=== PATIENT | female | born 1950 | race American Indian/Alaskan Native ===

== ENCOUNTER 2016-05-03 12:02 | Outpatient (CLI) | payer MEDICARE ==
--- NOTE | 2016-05-03 12:56 | XRay Report ---
Right knee: Periarticular spurs involve both medial and lateral joint compartments. Large articular spurs are also noted at the superior margin of the patella and femur. The joint spaces appear preserved and the articular margins are smooth. The bones are well-mineralized. The joint is well aligned. There is no swelling nor effusion. Impressions: Degenerative changes as detailed above.
== END 2016-05-03 12:03 | disposition home or self-care (01) ==
LOC: SPVIMAG 12:02
PROVIDERS: ATTEND Nurse Practitioner
DX: M25.561 Pain in right knee (principal)

== ENCOUNTER 2020-07-26 09:20 | Observation (INO) | payer MEDICARE ==
[2020-07-26] MEDS ORDERED: ASPIRIN 325 MG TAB PO ONE (10:31)
--- NOTE | 2020-07-26 11:30 | XRay Report ---
XR chest routine 2V INDICATION / CLINICAL INFORMATION: c/o dizziness and HTN. COMPARISON: None available. FINDINGS: SUPPORT DEVICES: None. HEART /PULMONARY VASCULATURE: No significant abnormality. LUNGS / PLEURA: No significant pulmonary or pleural abnormality. No pneumothorax. ADDITIONAL FINDINGS: No significant additional findings. IMPRESSION: 1. No acute findings. Signer Name: Jesus Fraire MD Signed: 07/26/2020 11:26 AM Workstation Name: [id number]
[2020-07-26 11:33] LABS: Basophils % (Auto) 0.3 % (0.0-1.8); Eosinophils % (Auto) 0.2 % (0.0-4.3); Hematocrit 40.6 % (30.3-42.9); Hemoglobin 13.7 gm/dl (10.1-14.3); Lymphocytes # (Auto) 1.2 K/mm3 (1.2-5.4); Mean Corpuscular HGB Conc 34 % (30-34); Mean Corpuscular Volume 88 fl (79-97); Monocytes # (Auto) 0.2 K/mm3 (0.0-0.8); Monocytes % (Auto) 1.9 % (0.0-7.3); Platelet Count 338 K/mm3 (140-440); Red Blood Count 4.64 M/mm3 (3.65-5.03); Red Cell Distribution Width 14.3 % (13.2-15.2)
--- NOTE | 2020-07-26 11:41 | Event Note ---
ED Screening Note ED Screening Note: lightheaded that began a few days ago and worsened last night states she felt off balance and dizziness states she is having memory issues for months she denies any CP or SOB or vomiting or fever or cough PMHx HTN allergy morphine This initial assessment/diagnostic orders/clinical plan/treatment(s) is/are subject to change based on patients health status, clinical progression and re- assessment by fellow clinical providers in the ED. Further treatment and workup at subsequent clinical providers discretion. Patient/guardian urged not to elope from the ED as their condition may be serious if not clinically assessed and managed. Initial orders include: labs, UA, EKG, CT head
[2020-07-26 11:56] LABS: Alanine Aminotransferase 15 units/L (7-56); Albumin 4.6 g/dL (3.9-5); Blood Urea Nitrogen 13 mg/dL (7-17); Hemolysis Index 4
[2020-07-26 12:06] LABS: BUN/Creatinine Ratio 19
--- NOTE | 2020-07-26 12:28 | Cat Scan Report ---
NONENHANCED CT SCAN OF THE HEAD: INDICATION / CLINICAL INFORMATION: 70 years Female; lightheaded, dizziness, HTN. TECHNIQUE: Routine CT head without contrast. All CT scans at this location are performed using CT dos e reduction for ALARA by means of automated exposure control. COMPARISON: None. FINDINGS: BRAIN / INTRACRANIAL CONTENTS: No acute hemorrhage, mass effect, midline shift, hydrocephalus, or acu te, large territorial infarct. No chronic infarct or focal atrophy. Mild cortical involution. No sign ificant white matter abnormality. CRANIOCERVICAL JUNCTION: No significant abnormality. ORBITS: No significant abnormality of visualized orbits. SINUSES / MASTOIDS: No significant abnormality of the visualized paranasal sinuses or mastoid air lauren ls. ADDITIONAL FINDINGS: Focal expansile lucent lesion in the diploic space of the left frontal bone; int act; involution is seen minimal adjacent intracranial soft tissue swelling; soft tissue swelling is b othersome; no previous CT images are available; this has to be followed; MRI scan with gadolinium wou ld be helpful IMPRESSION: No acute focal parenchymal lesion in the brain Focal expansile left frontal bone diploic space lesion with diminished into the inner table and adjac ent intracranial soft tissue swelling; please obtain MR scan of the brain with gadolinium Signer Name: Pricilla Harris MD Signed: 07/26/2020 12:23 PM Workstation Name: [email or web address]
--- NOTE | 2020-07-26 13:39 | Emergency Department Report ---
ED Dizziness HPI - General Chief Complaint: Dizziness Stated Complaint: HBP, DIZZINESS Time Seen by Provider: 07/26/20 11:39 Source: patient, EMS Mode of arrival: Wheelchair Limitations: No Limitations - History of Present Illness Initial Comments: 70-year-old female, history of hypertension, dementia, presents to ED with elevated blood pressure. Patient is currently living in a personal detention. I spoke with Maru Rojas ([phone]), personal lines sales executive. She states patient has been complaining of dizziness for about 4 days. Stating that he feels like she is swimming. She reports that patient's systolic BP was in the 200s yesterday and today, so EMS was called. She reports that patient did take her blood pressure medications prior to leaving the facility and coming to the ER. She states that patient takes benazepril 1 tab daily, and HCTZ 1 tab every other day. Patient currently states that she cannot remember why she is in the emergency room. She denies any headache, nausea or vomiting, abdominal pain, chest pain, shortness of breath. When asked about dizziness, patient states she had some dizziness earlier, however it has currently gone away. Patient is poor historian MD Complaint: dizziness -: days(s) (4) Improves With: nothing Worsens With: nothing Associated Symptoms: denies: chest pain, cough, fever/chills, shortness of breath - Related Data Home Medications Medication Instructions Recorded Confirmed Last Taken Benazepril HCl [Lotensin] 20 mg PO QDAY 07/27/20 07/27/20 Unknown Ergocalciferol (Vitamin D2) 1,250 mcg PO QDAY 07/27/20 07/27/20 Unknown [Drisdol] Ezetimibe [Zetia] 10 mg PO QDAY 07/27/20 07/27/20 Unknown Potassium Chloride [K-Dur] 10 meq PO Q48H 07/27/20 07/27/20 Unknown hydroCHLOROthiazide 25 mg PO Q48H 07/27/20 07/27/20 Unknown [Hydrochlorothiazide] Allergies Allergy/AdvReac Type Severity Reaction Status Date / Time morphine Allergy Rash Verified 07/27/20 00:49 ED Review of Systems ROS: Stated complaint: HBP, DIZZINESS Other details as noted in HPI Comment: All other systems reviewed and negative Constitutional: denies: fever Respiratory: denies: shortness of breath Cardiovascular: denies: chest pain Gastrointestinal: denies: abdominal pain, vomiting, diarrhea Neurological: vertigo. denies: headache ED Past Medical Hx - Past Medical History Previous Medical History?: Yes Hx Hypertension: Yes - Surgical History Past Surgical History?: Yes Additional Surgical History: - Social History Smoking Status: Never Smoker Substance Use Type: Alcohol - Medications Home Medications: Home Medications Medication Instructions Recorded Confirmed Last Taken Type Benazepril HCl [Lotensin] 20 mg PO QDAY 07/27/20 07/27/20 Unknown History Ergocalciferol (Vitamin D2) 1,250 mcg PO QDAY 07/27/20 07/27/20 Unknown History [Drisdol] Ezetimibe [Zetia] 10 mg PO QDAY 07/27/20 07/27/20 Unknown History Potassium Chloride [K-Dur] 10 meq PO Q48H 07/27/20 07/27/20 Unknown History hydroCHLOROthiazide 25 mg PO Q48H 07/27/20 07/27/20 Unknown History [Hydrochlorothiazide] ED Physical Exam - General Limitations: No Limitations General appearance: alert, in no apparent distress - Head Head exam: Present: atraumatic, normocephalic - Eye Eye exam: Present: normal appearance, PERRL, EOMI - ENT ENT exam: Present: mucous membranes moist - Neck Neck exam: Present: normal inspection - Respiratory Respiratory exam: Present: normal lung sounds bilaterally. Absent: respiratory distress - Cardiovascular Cardiovascular Exam: Present: regular rate, normal rhythm - GI/Abdominal GI/Abdominal exam: Present: soft. Absent: distended, tenderness - Extremities Exam Extremities exam: Present: normal inspection - Neurological Exam Neurological exam: Present: alert, oriented X3, CN II-XII intact, abnormal gait, other ([id number] normal bilaterally). Absent: motor sensory deficit ED Course Vital Signs 07/26/20 07/26/20 07/26/20 10:21 13:12 13:31 Temperature 98.4 F Pulse Rate 60 70 Respiratory 20 8 L 14 Rate Blood Pressure 183/91 165/86 Blood Pressure [Left] O2 Sat by Pulse 98 100 99 Oximetry 07/26/20 07/26/20 07/26/20 13:45 14:11 14:31 Temperature 98.4 F Pulse Rate 74 79 Respiratory 14 13 15 Rate Blood Pressure 173/93 153/81 Blood Pressure 165/86 [Left] O2 Sat by Pulse 100 99 99 Oximetry 07/26/20 07/26/20 07/26/20 15:01 15:31 15:51 Temperature Pulse Rate 71 83 87 Respiratory 14 18 16 Rate Blood Pressure 165/86 142/73 142/73 Blood Pressure [Left] O2 Sat by Pulse 99 100 100 Oximetry 07/26/20 07/26/20 07/26/20 16:01 16:10 16:25 Temperature Pulse Rate 82 79 96 H Respiratory 14 15 Rate Blood Pressure 135/74 165/86 135/74 Blood Pressure [Left] O2 Sat by Pulse 99 99 Oximetry 07/26/20 07/26/20 07/26/20 16:31 16:41 16:51 Temperature Pulse Rate 78 87 86 Respiratory 16 18 12 Rate Blood Pressure 149/84 149/84 149/84 Blood Pressure [Left] O2 Sat by Pulse 100 98 99 Oximetry 07/26/20 07/26/20 07/26/20 17:01 17:11 17:21 Temperature Pulse Rate 84 87 Respiratory 22 21 16 Rate Blood Pressure 135/74 135/74 135/74 Blood Pressure [Left] O2 Sat by Pulse 99 98 99 Oximetry ED Medical Decision Making - Lab Data Result diagrams: 07/26/20 11:10 07/26/20 11:10 - Radiology Data Radiology results: report reviewed, image reviewed - Medical Decision Making 70-year-old female presents to ED with 4-day history of dizziness, 2-day history of elevated blood pressure despite taking her blood pressure medications. EKG and labs are normal. CT head is unremarkable. With ambulation, patient has unsteady gait. I am concerned about possible posterior circulation stroke. Patient will be admitted by hospitalist, Dr. Gardner, for further management and MRI. - Differential Diagnosis Uncontrolled hypertension, CVA, benign positional vertigo Critical care attestation.: If time is entered above; I have spent that time in minutes in the direct care of this critically ill patient, excluding procedure time. ED Disposition Clinical Impression: Dizziness, Uncontrolled hypertension Disposition: OP ADMIT IP TO THIS HOSP Is pt being admited?: Yes Condition: Stable Time of Disposition: 15:07
[2020-07-26 14:26] LABS: Bilirubin,Urine NEG (Negative); Blood,Urine NEG (Negative); Color,Urine Yellow (Yellow); Mucus,Urine FEW /HPF; Protein,Urine <15 mg/dL mg/dL (Negative); Urobilinogen,Urine < 2.0 mg/dL (<2.0)
[2020-07-26 14:51] LABS: RBC,Urine < 1.0 /HPF (0.0-6.0)
--- NOTE | 2020-07-27 00:17 | History and Physical Report ---
History of Present Illness Date of examination: 07/26/20 Date of admission: 07/26/20 16:40 Chief complaint: Dizziness and unsteady gait for 4 days. History of present illness: 70-year-old female with a past medical history of hypertension currently living in a personal [facility] comes in for dizziness and unsteady gait of 4 days duration. Patient does not have any weakness but very unsteady while walking. Also persistent dizziness. Patient blood pressure is also high and was sent by the personal [facility] by EMS. No shortness of breath. Patient is on benaz epril. No strokes in the past. Code stroke was called in the emergency room. Patient continues to have dizziness. No exacerbating or relieving factors. - Past Medical History Previous Medical History?: Yes Hx Hypertension: Yes - Surgical History Past Surgical History?: Yes Additional Surgical History: - Social History Smoking Status: Never Smoker Substance Use Type: Alcohol Family history Htn Review of Systems ROS: Stated complaint: HBP, DIZZINESS Other details as noted in HPI Comment: All other systems reviewed and negative Constitutional: denies: fever Respiratory: denies: shortness of breath Cardiovascular: denies: chest pain Gastrointestinal: denies: abdominal pain, vomiting, diarrhea Neurological: vertigo. denies: headache Medications and Allergies Allergies Allergy/AdvReac Type Severity Reaction Status Date / Time morphine Allergy Rash Verified 07/26/20 17:37 Exam - Constitutional Vitals: Temp Pulse Resp BP Pulse Ox 98.1 F 74 18 147/64 98 07/26/20 23:12 07/26/20 23:12 07/26/20 23:12 07/26/20 23:12 07/26/20 23:12 General appearance: Present: no acute distress, well-nourished - EENT Eyes: Present: PERRL ENT: hearing intact, clear oral mucosa - Neck Neck: Present: supple, normal ROM - Respiratory Respiratory effort: normal Respiratory: bilateral: CTA - Cardiovascular Heart rate: 78 Rhythm: regular Heart Sounds: Present: S1 & S2. Absent: rub, click - Extremities Extremities: pulses symmetrical, No edema Peripheral Pulses: within normal limits - Abdominal General gastrointestinal: Present: soft, non-tender, non-distended, normal bowel sounds Female genitourinary: Present: normal - Integumentary Integumentary: Present: clear, warm, dry - Musculoskeletal Musculoskeletal: gait normal, strength equal bilaterally - Psychiatric Psychiatric: appropriate mood/affect, intact judgment & insight - Neurologic Neurologic: CNII-XII intact, focal deficits (No focal deficits), moves all ex tremities, other (Unsteady gait) HEART Score - HEART Score Troponin: Troponin T < 0.010 ng/mL (0.00-0.029) 07/26/20 14:19 Results - Labs CBC & Chem 7: 07/26/20 11:10 07/26/20 11:10 Labs: Laboratory Last Values WBC 10.8 K/mm3 (4.5-11.0) 07/26/20 11:10 RBC 4.64 M/mm3 (3.65-5.03) 07/26/20 11:10 Hgb 13.7 gm/dl (10.1-14.3) 07/26/20 11:10 Hct 40.6 % (30.3-42.9) 07/26/20 11:10 MCV 88 fl (79-97) 07/26/20 11:10 MCH 30 pg (28-32) 07/26/20 11:10 MCHC 34 % (30-34) 07/26/20 11:10 RDW 14.3 % (13.2-15.2) 07/26/20 11:10 Plt Count 338 K/mm3 (140-440) 07/26/20 11:10 Lymph % (Auto) 11.0 % (13.4-35.0) L 07/26/20 11:10 Dickens % (Auto) 1.9 % (0.0-7.3) 07/26/20 11:10 Eos % (Auto) 0.2 % (0.0-4.3) 07/26/20 11:10 Baso % (Auto) 0.3 % (0.0-1.8) 07/26/20 11:10 Lymph # (Auto) 1.2 K/mm3 (1.2-5.4) 07/26/20 11:10 Dickens # (Auto) 0.2 K/mm3 (0.0-0.8) 07/26/20 11:10 Eos # (Auto) 0.0 K/mm3 (0.0-0.4) 07/26/20 11:10 Baso # (Auto) 0.0 K/mm3 (0.0-0.1) 07/26/20 11:10 Seg Neutrophils % 86.6 % (40.0-70.0) H 07/26/20 11:10 Seg Neutrophils # 9.4 K/mm3 (1.8-7.7) H 07/26/20 11:10 Sodium 140 mmol/L (137-145) 07/26/20 11:10 Potassium 3.9 mmol/L (3.6-5.0) 07/26/20 11:10 Chloride 100.7 mmol/L (98-107) 07/26/20 11:10 Carbon Dioxide 28 mmol/L (22-30) 07/26/20 11:10 Anion Gap 15 mmol/L 07/26/20 11:10 BUN 13 mg/dL (7-17) 07/26/20 11:10 Creatinine 0.7 mg/dL (0.6-1.2) 07/26/20 11:10 Estimated GFR > 60 ml/min 07/26/20 11:10 BUN/Creatinine Ratio 19 % 07/26/20 11:10 Glucose 115 mg/dL (65-100) H 07/26/20 11:10 Calcium 10.0 mg/dL (8.4-10.2) 07/26/20 11:10 Magnesium 2.50 mg/dL (1.7-2.3) H 07/26/20 11:10 Total Bilirubin 0.30 mg/dL (0.1-1.2) 07/26/20 11:10 AST 13 units/L (5-40) 07/26/20 11:10 ALT 15 units/L (7-56) 07/26/20 11:10 Alkaline Phosphatase 97 units/L (35-129) 07/26/20 11:10 Total Creatine Kinase 107 units/L (30-135) 07/26/20 11:10 Troponin T < 0.010 ng/mL (0.00-0.029) 07/26/20 14:19 Total Protein 7.6 g/dL (6.3-8.2) 07/26/20 11:10 Albumin 4.6 g/dL (3.9-5) 07/26/20 11:10 Albumin/Globulin Ratio 1.5 % 07/26/20 11:10 Urine Color Yellow (Yellow) 07/26/20 Unknown Urine Turbidity Clear (Clear) 07/26/20 Unknown Urine pH 7.0 (5.0-7.0) 07/26/20 Unknown Ur Specific [place] 1.013 (1.003-1.030) 07/26/20 Unknown Urine Protein <15 mg/dl mg/dL (Negative) 07/26/20 Unknown Urine Glucose (UA) Neg mg/dL (Negative) 07/26/20 Unknown Urine Ketones Tr mg/dL (Negative) 07/26/20 Unknown Urine Blood Neg (Negative) 07/26/20 Unknown Urine Nitrite Neg (Negative) 07/26/20 Unknown Urine Bilirubin Neg (Negative) 07/26/20 Unknown Urine Urobilinogen < 2.0 mg/dL (<2.0) 07/26/20 Unknown Ur Leukocyte Esterase Sm (Negative) 07/26/20 Unknown Urine WBC (Auto) 1.0 /HPF (0.0-6.0) 07/26/20 Unknown Urine RBC (Auto) < 1.0 /HPF (0.0-6.0) 07/26/20 Unknown Urine Mucus Few /HPF 07/26/20 Unknown - Imaging and Cardiology EKG: report reviewed (Sinus rhythm no acute ST-T wave changes) Chest x-ray: report reviewed Imaging and Cardiology: Head CT No acute focal parenchymal lesions in the brain Chest x-ray No acute findings Rae/IV: Voiding Method Toilet Assessment and Plan Advance Directives: Yes (Full code) VTE prophylaxis?: Chemical Plan of care discussed with patient/family: Yes - Patient Problems (1) Hypertensive emergency Current Visit: Yes Status: Acute Plan to address problem: Blood pressure medications initiated We will control the blood pressure IV hydralazine as needed (2) Dizziness Current Visit: Yes Status: Acute Plan to address problem: Possible acute labyrinthitis (3) Ataxia Current Visit: Yes Status: Acute Plan to address problem: Rule out CVA Neurology consult requested (4) DVT prophylaxis Current Visit: Yes Status: Acute Plan to address problem: On heparin and GI prophylaxis
[2020-07-27] MEDS ORDERED: METOCLOPRAMIDE 10 MG/2 ML INJ IV PRN (00:24)
[2020-07-27] MEDS ORDERED: ACETAMINOPHEN 325 MG TAB PO PRN ×2 (00:24→00:30)
[2020-07-27] MEDS ORDERED: MORPHINE 2 MG/1 ML INJ IV PRN (00:24)
[2020-07-27] MEDS ORDERED: ONDANSETRON 4 MG/2 ML INJ IV PRN ×2 (00:24→00:30)
[2020-07-27] MEDS ORDERED: SODIUM CHLORIDE 0.9% 1000 ML 1,000 ML IV SCH (00:30)
[2020-07-27] MEDS ORDERED: METOCLOPRAMIDE 10 MG TAB PO PRN (00:30)
[2020-07-27] MEDS ORDERED: oxyCODONE /ACETAMINOPHEN 5-325MG TAB PO PRN (00:30)
[2020-07-27] MEDS ORDERED: MAGNESIUM HYDROXIDE (MOM) ORAL LIQD UDC PO PRN (00:30)
[2020-07-27] MEDS ORDERED: PROMETHAZINE 25 MG RECT SUPP PR PRN (00:30)
[2020-07-27] MEDS: VALSARTAN 160MG TAB PO SCH ×2 (00:45→09:31)
[2020-07-27] MEDS: HEPARIN 5,000 UNIT/1 ML VIAL SUB-Q SCH ×2 (01:00→09:33)
--- NOTE | 2020-07-27 07:38 | Consultation ---
History of Present Illness Consult date: 07/27/20 Reason for Consult: dizziness and unsteadinessX4 days History of present illness: Dizziness and unsteady gait for 4 days. History of present illness: 70-year-old female with a past medical history of hypertension currently living in a personal [facility] comes in for dizziness and unsteady gait of 4 days duration. Patient does not have any weakness but very unsteady while walking ,according to pt. problem get worse when she looks up or move in bed get at time worse with standing up , no previous hx of similar matter , no nausea, no diplopia no swallowing difficulty or weakness Patient blood pressure is also high and was sent by the personal [facility] by EMS. No shortness of breath. Patient is on benazepril. No strokes in the past. Code stroke was called in the emergency room. Ct brain is unremarkable MRI and CTA not done she is started on ASA pt. is not candidate for TPA nor thrombectomy - Past Medical History Previous Medical History?: Yes Hx Hypertension: Yes - Surgical History Past Surgical History?: Yes Additional Surgical History: - Social History Smoking Status: Never Smoker Substance Use Type: Alcohol Family history Htn Review of Systems ROS: Stated complaint: HBP, DIZZINESS Other details as noted in HPI Comment: All other systems reviewed and negative Constitutional: denies: fever Respiratory: denies: shortness of breath Cardiovascular: denies: chest pain Gastrointestinal: denies: abdominal pain, vomiting, diarrhea Neurological: vertigo. denies: headache Medications and Allergies Allergies Allergy/AdvReac Type Severity Reaction Status Date / Time morphine Allergy Rash Verified 07/26/20 17:37 Medications and Allergies Allergies Allergy/AdvReac Type Severity Reaction Status Date / Time morphine Allergy Rash Verified 07/27/20 00:49 Home Medications Medication Instructions Recorded Confirmed Last Taken Type Benazepril HCl [Lotensin] 20 mg PO QDAY 07/27/20 07/27/20 Unknown History Ergocalciferol (Vitamin D2) 1,250 mcg PO QDAY 07/27/20 07/27/20 Unknown History [Drisdol] Ezetimibe [Zetia] 10 mg PO QDAY 07/27/20 07/27/20 Unknown History Potassium Chloride [K-Dur] 10 meq PO Q48H 07/27/20 07/27/20 Unknown History hydroCHLOROthiazide 25 mg PO Q48H 07/27/20 07/27/20 Unknown History [Hydrochlorothiazide] Active Meds: Active Medications Acetaminophen (Acetaminophen 325 Mg Tab) 650 mg PO Q4H PRN PRN Reason: Pain, Mild (1-3) Aspirin (Aspirin 300 Mg Rect Supp) 300 mg [place] QDAY [facility] Bisacodyl (Bisacodyl 10 Mg Rect Supp) 10 mg [place] QDAY PRN PRN Reason: Constipation Famotidine (Famotidine 20 Mg/2 Ml Inj) 20 mg IV BID [facility] Famotidine (Famotidine 20 Mg Tab) 20 mg PO BID [facility] Heparin Sodium (Porcine) (Heparin 5,000 Unit/1 Ml Vial) 5,000 unit SUB-Q Q12HR [facility] Last Admin: 07/27/20 01:00 Dose: 5,000 unit Documented by: Sodium Chloride (Nacl 0.9% 1000 Ml) 1,000 mls @ 100 mls/hr IV DIRECT [facility] Magnesium Hydroxide (Magnesium Hydroxide (Mom) Oral Liqd Udc) 30 ml PO Q4H PRN PRN Reason: Constipation Metoclopramide HCl (Metoclopramide 10 Mg/2 Ml Inj) 10 mg IV Q6H PRN PRN Reason: Nausea And Vomiting Metoclopramide HCl (Metoclopramide 10 Mg Tab) 10 mg PO Q6H PRN PRN Reason: Nausea And Vomiting Morphine Sulfate (Morphine 2 Mg/1 Ml Inj) 2 mg IV Q4H PRN PRN Reason: Pain, Moderate (4-6) Ondansetron HCl (Ondansetron 4 Mg/2 Ml Inj) 4 mg IV Q8H PRN PRN Reason: Nausea And Vomiting Oxycodone/Acetaminophen (Oxycodone /Acetaminophen 5-325mg Tab) 1 tab PO Q6H PRN PRN Reason: Pain, Moderate (4-6) Promethazine HCl (Promethazine 25 Mg Rect Supp) 25 mg [place] Q6H PRN PRN Reason: Nausea And Vomiting Sodium Chloride (Sodium Chloride 0.9% 10 Ml Flush Syringe) 10 ml IV BID [facility] Sodium Chloride (Sodium Chloride 0.9% 10 Ml Flush Syringe) 10 ml IV PRN PRN PRN Reason: LINE FLUSH Valsartan (Valsartan 160mg Tab) 160 mg PO DAILY [facility] Last Admin: 07/27/20 00:45 Dose: Not Given Documented by: Physical Examination - Vital Signs Vital Signs: Vital Signs Temp Pulse Resp BP Pulse Ox 98.4 F 60 20 183/91 98 07/26/20 10:21 07/26/20 10:21 07/26/20 10:21 07/26/20 10:21 07/26/20 10:21 - Constitutional General appearance: comfortable - EENT EENT: Present: PERRL, mucous membranes moist - Respiratory Respiratory: Present: chest non-tender, lungs clear, rhonchi - Cardiovascular Cardiovascular: Present: regular rate, normal S1, normal S2 Extremities: Present: no peripheral edema bilatateraly, no clubbing, cyanosis - Gastrointestinal Gastrointestinal: Present: normoactive bowel sounds - Integumentary Integumentary: Present: normal - Neurologic Cranial nerve examination: PERRL, EOMI, intact Speech examination: intact Sensorimotor examination: intact Detailed motor examination: grossly full strength in Results - Laboratory Findings CBC and BMP: 07/26/20 11:10 07/26/20 11:10 Abnormal Lab Findings: Abnormal Labs 07/26/20 07/26/20 07/26/20 11:10 11:10 11:10 Lymph % (Auto) 11.0 L Seg Neutrophils % 86.6 H Seg Neutrophils # 9.4 H Glucose 115 H Magnesium 2.50 H Assessment and Plan Assessment and Plan Advance Directives: Yes (Full code) VTE prophylaxis?: Chemical Plan of care discussed with patient/family: Yes # Dizziness/ vertigo X few days with no associated weakness -no Hx of similar matter -CT brain is unremarkable -MRI brain is pending -Findings is suggestive of BPV . -start scopolamin patch -check for orthostatic changes # Hypertenion Blood pressure medications initiated We will control the blood pressure IV hydralazine as needed # Unsteady gait -mostly related to above -Check MRI brain -check for orthostatic changes # DVT prophylaxis -On heparin and GI prophylaxis will follow after MRI is done
[2020-07-27] MEDS: FAMOTIDINE 20 MG TAB PO SCH ×2 (09:31→21:12)
[2020-07-27] MEDS: ASPIRIN 325 MG TAB PO SCH (09:31)
[2020-07-27] MEDS ORDERED: FAMOTIDINE 20 MG/2 ML INJ IV SCH (10:00)
[2020-07-27] MEDS ORDERED: SCOPOLAMINE TRANSDERMAL PATCH 72 HR TD SCH (10:00)
[2020-07-27] MEDS ORDERED: ASPIRIN 300 MG RECT SUPP PR SCH (10:00)
--- NOTE | 2020-07-27 10:25 | Progress Note ---
Assessment and Plan Assessment and plan: Dizziness/Vertigo Admitted to [facility] To r/o stroke vs BPPV vs acute labyrinthitos Neurology consulted, following CT head unremarkable MRI Brain ordered, pending Unsteady gait Related to above For MRI Brain Hypertensive emergency Blood pressure medications initiated On HCTZ, Diovan Hydralazine 10mg iv prn DVT prophylaxis On heparin and GI prophylaxis Full Code Status History Interval history: Dizziness Unsteady gait Hospitalist Physical - Physical exam Narrative exam: Gen: Not in acute distress, lying in bed HEENT: Normochephalic, atraumatic Neck:supple, No JVD Lungs:Clear to auscultation bilaterally, no rales, no wheeze Heart:S1 and S2 reg, no murmurs, rubs or gallop Abd: soft, non tender, non distended, normal bowel sounds Ext: No edema, no clubbing, no cyanosis Neuro:Awake,alert,oriented X 3, moves all ext, no focal neurological signs - Constitutional Vitals: Temp Pulse Resp BP Pulse Ox 98.1 F 68 20 157/86 98 07/27/20 03:53 07/27/20 03:53 07/27/20 07:44 07/27/20 03:53 07/27/20 03:53 General appearance: Present: no acute distress, well-nourished HEART Score - HEART Score Troponin: Troponin T < 0.010 ng/mL (0.00-0.029) 07/26/20 14:19 Results - Labs CBC & Chem 7: 07/26/20 11:10 07/26/20 11:10 Labs: Laboratory Last Values WBC 10.8 K/mm3 (4.5-11.0) 07/26/20 11:10 RBC 4.64 M/mm3 (3.65-5.03) 07/26/20 11:10 Hgb 13.7 gm/dl (10.1-14.3) 07/26/20 11:10 Hct 40.6 % (30.3-42.9) 07/26/20 11:10 MCV 88 fl (79-97) 07/26/20 11:10 MCH 30 pg (28-32) 07/26/20 11:10 MCHC 34 % (30-34) 07/26/20 11:10 RDW 14.3 % (13.2-15.2) 07/26/20 11:10 Plt Count 338 K/mm3 (140-440) 07/26/20 11:10 Lymph % (Auto) 11.0 % (13.4-35.0) L 07/26/20 11:10 [place] % (Auto) 1.9 % (0.0-7.3) 07/26/20 11:10 Eos % (Auto) 0.2 % (0.0-4.3) 07/26/20 11:10 Baso % (Auto) 0.3 % (0.0-1.8) 07/26/20 11:10 Lymph # (Auto) 1.2 K/mm3 (1.2-5.4) 07/26/20 11:10 [place] # (Auto) 0.2 K/mm3 (0.0-0.8) 07/26/20 11:10 Eos # (Auto) 0.0 K/mm3 (0.0-0.4) 07/26/20 11:10 Baso # (Auto) 0.0 K/mm3 (0.0-0.1) 07/26/20 11:10 Seg Neutrophils % 86.6 % (40.0-70.0) H 07/26/20 11:10 Seg Neutrophils # 9.4 K/mm3 (1.8-7.7) H 07/26/20 11:10 Sodium 140 mmol/L (137-145) 07/26/20 11:10 Potassium 3.9 mmol/L (3.6-5.0) 07/26/20 11:10 Chloride 100.7 mmol/L (98-107) 07/26/20 11:10 Carbon Dioxide 28 mmol/L (22-30) 07/26/20 11:10 Anion Gap 15 mmol/L 07/26/20 11:10 BUN 13 mg/dL (7-17) 07/26/20 11:10 Creatinine 0.7 mg/dL (0.6-1.2) 07/26/20 11:10 Estimated GFR > 60 ml/min 07/26/20 11:10 BUN/Creatinine Ratio 19 % 07/26/20 11:10 Glucose 115 mg/dL (65-100) H 07/26/20 11:10 Hemoglobin A1c 5.0 % (4-6) 07/27/20 05:14 Calcium 10.0 mg/dL (8.4-10.2) 07/26/20 11:10 Magnesium 2.50 mg/dL (1.7-2.3) H 07/26/20 11:10 Total Bilirubin 0.30 mg/dL (0.1-1.2) 07/26/20 11:10 AST 13 units/L (5-40) 07/26/20 11:10 ALT 15 units/L (7-56) 07/26/20 11:10 Alkaline Phosphatase 97 units/L (35-129) 07/26/20 11:10 Total Creatine Kinase 107 units/L (30-135) 07/26/20 11:10 Troponin T < 0.010 ng/mL (0.00-0.029) 07/26/20 14:19 Total Protein 7.6 g/dL (6.3-8.2) 07/26/20 11:10 Albumin 4.6 g/dL (3.9-5) 07/26/20 11:10 Albumin/Globulin Ratio 1.5 % 07/26/20 11:10 Urine Color Yellow (Yellow) 07/26/20 Unknown Urine Turbidity Clear (Clear) 07/26/20 Unknown Urine pH 7.0 (5.0-7.0) 07/26/20 Unknown Ur Specific [place] 1.013 (1.003-1.030) 07/26/20 Unknown Urine Protein <15 mg/dl mg/dL (Negative) 07/26/20 Unknown Urine Glucose (UA) Neg mg/dL (Negative) 07/26/20 Unknown Urine Ketones Tr mg/dL (Negative) 07/26/20 Unknown Urine Blood Neg (Negative) 07/26/20 Unknown Urine Nitrite Neg (Negative) 07/26/20 Unknown Urine Bilirubin Neg (Negative) 07/26/20 Unknown Urine Urobilinogen < 2.0 mg/dL (<2.0) 07/26/20 Unknown Ur Leukocyte Esterase Sm (Negative) 07/26/20 Unknown Urine WBC (Auto) 1.0 /HPF (0.0-6.0) 07/26/20 Unknown Urine RBC (Auto) < 1.0 /HPF (0.0-6.0) 07/26/20 Unknown Urine Mucus Few /HPF 07/26/20 Unknown Rae/IV: Voiding Method Toilet Active Medications - Current Medications Current Medications: Generic Name Dose Route Start Last Admin Trade Name Freq PRN Reason Stop Dose Admin Acetaminophen 650 mg 07/27/20 00:30 Acetaminophen 325 Mg Tab PO Q4H PRN Pain, Mild (1-3) Aspirin 325 mg 07/27/20 10:00 07/27/20 09:31 Aspirin 325 Mg Tab PO 325 mg QDAY KEYSHAWN Administration Bisacodyl 10 mg 07/27/20 00:30 Bisacodyl 10 Mg Rect Supp [place] QDAY PRN Constipation Ezetimibe 10 mg 07/27/20 11:00 Ezetimibe 10 Mg Tab PO QDAY [facility] Ergocalciferol unit 07/27/20 11:00 Ergocalciferol (Vit D2) 50,000 Unit Cap PO QDAY [facility] Famotidine 20 mg 07/27/20 10:00 07/27/20 09:31 Famotidine 20 Mg Tab PO 20 mg BID KEYSHAWN Administration Heparin Sodium (Porcine) 5,000 unit 07/27/20 00:45 07/27/20 09:33 Heparin 5,000 Unit/1 Ml Vial SUB-Q Not Given Q12HR [facility] Hydrochlorothiazide 25 mg 07/27/20 11:00 Hydrochlorothiazide 12.5 Mg Cap PO Q48H [facility] Sodium Chloride 1,000 mls @ 100 mls/hr 07/27/20 00:30 Nacl 0.9% 1000 Ml IV DIRECT [facility] Magnesium Hydroxide 30 ml 07/27/20 00:30 Magnesium Hydroxide (Mom) Oral Liqd Udc PO Q4H PRN Constipation Metoclopramide HCl 10 mg 07/27/20 00:24 Metoclopramide 10 Mg/2 Ml Inj IV Q6H PRN Nausea And Vomiting Metoclopramide HCl 10 mg 07/27/20 00:30 Metoclopramide 10 Mg Tab PO Q6H PRN Nausea And Vomiting Morphine Sulfate 2 mg 07/27/20 00:24 Morphine 2 Mg/1 Ml Inj IV Q4H PRN Pain, Moderate (4-6) Ondansetron HCl 4 mg 07/27/20 00:24 Ondansetron 4 Mg/2 Ml Inj IV Q8H PRN Nausea And Vomiting Oxycodone/Acetaminophen 1 tab 07/27/20 00:30 Oxycodone /Acetaminophen 5-325mg Tab PO Q6H PRN Pain, Moderate (4-6) Promethazine HCl 25 mg 07/27/20 00:30 Promethazine 25 Mg Rect Supp [place] Q6H PRN Nausea And Vomiting Scopolamine 1 each 07/27/20 10:00 07/27/20 10:21 Scopolamine Transdermal Patch 72 Hr TD 1 each Q3D KEYSHAWN Administration Sodium Chloride 10 ml 07/27/20 10:00 07/27/20 09:35 Sodium Chloride 0.9% 10 Ml Flush Syringe IV Not Given BID KEYSHAWN Sodium Chloride 10 ml 07/27/20 00:24 Sodium Chloride 0.9% 10 Ml Flush Syringe IV PRN PRN LINE FLUSH Valsartan 160 mg 07/27/20 00:36 07/27/20 09:31 Valsartan 160mg Tab PO 160 mg DAILY KEYSHAWN Administration
[2020-07-27] MEDS ORDERED: ERGOCALCIFEROL (VIT D2) 50,000 UNIT CAP PO SCH (11:00)
[2020-07-27] MEDS: EZETIMIBE 10 MG TAB PO SCH (12:53)
[2020-07-27] MEDS: hydroCHLOROthiazide 25 MG TAB PO SCH (12:53)
[2020-07-27] MEDS: hydrALAZINE 20 MG/1 ML INJ IV PRN (16:40)
[2020-07-28 06:13] LABS: Basophils % (Auto) 0.3 % (0.0-1.8); Eosinophils # (Auto) 0.1 K/mm3 (0.0-0.4); Eosinophils % (Auto) 1.1 % (0.0-4.3); Hematocrit 36.7 % (30.3-42.9); Hemoglobin 12.4 gm/dl (10.1-14.3); Mean Corpuscular HGB Conc 34 % (30-34); Mean Corpuscular Volume 88 fl (79-97); Monocytes # (Auto) 0.4 K/mm3 (0.0-0.8); Monocytes % (Auto) 6.1 % (0.0-7.3); Platelet Count 325 K/mm3 (140-440); Red Cell Distribution Width 14.6 % (13.2-15.2)
[2020-07-28 06:28] LABS: Alanine Aminotransferase 12 units/L (7-56); Albumin 4.1 g/dL (3.9-5); BUN/Creatinine Ratio 15; Blood Urea Nitrogen 12 mg/dL (7-17); Chol/HDL Ratio 3.66 %; HDL Cholesterol 59 mg/dL (40-59); Hemolysis Index 11; LDL Cholesterol,Direct 155 mg/dL (50-130)
--- NOTE | 2020-07-28 08:41 | Progress Note ---
Assessment and Plan Assessment and plan: Dizziness/Vertigo Neurology consulted, following CT head unremarkable MRI Brain pending Unsteady gait Await PT eval Hypertensive emergency Blood pressure medications initiated On HCTZ, Diovan Hydralazine 10mg iv prn DVT prophylaxis On heparin and GI prophylaxis Full Code Status History Interval history: No new issues Hospitalist Physical - Constitutional Vitals: Temp Pulse Resp BP Pulse Ox 97.9 F 76 16 146/83 99 07/28/20 07:48 07/28/20 07:48 07/28/20 07:48 07/28/20 07:48 07/28/20 07:48 General appearance: Present: no acute distress, well-nourished - EENT Eyes: Present: PERRL, EOM intact ENT: hearing intact, clear oral mucosa, dentition normal - Neck Neck: Present: supple, normal ROM - Respiratory Respiratory effort: normal Respiratory: bilateral: CTA - Cardiovascular Rhythm: regular Heart Sounds: Present: S1 & S2. Absent: gallop, rub - Extremities Extremities: no ischemia, No edema, Full ROM - Abdominal General gastrointestinal: soft, non-tender, non-distended, normal bowel sounds - Integumentary Integumentary: Present: clear, warm, dry - Neurologic Neurologic: CNII-XII intact, moves all extremities HEART Score - HEART Score Troponin: Troponin T < 0.010 ng/mL (0.00-0.029) 07/26/20 14:19 Results - Labs CBC & Chem 7: 07/28/20 05:25 07/28/20 05:25 Labs: Laboratory Last Values WBC 6.6 K/mm3 (4.5-11.0) 07/28/20 05:25 RBC 4.20 M/mm3 (3.65-5.03) 07/28/20 05:25 Hgb 12.4 gm/dl (10.1-14.3) 07/28/20 05:25 Hct 36.7 % (30.3-42.9) 07/28/20 05:25 MCV 88 fl (79-97) 07/28/20 05:25 MCH 30 pg (28-32) 07/28/20 05:25 MCHC 34 % (30-34) 07/28/20 05:25 RDW 14.6 % (13.2-15.2) 07/28/20 05:25 Plt Count 325 K/mm3 (140-440) 07/28/20 05:25 Lymph % (Auto) 45.0 % (13.4-35.0) H 07/28/20 05:25 [place] % (Auto) 6.1 % (0.0-7.3) 07/28/20 05:25 Eos % (Auto) 1.1 % (0.0-4.3) 07/28/20 05:25 Baso % (Auto) 0.3 % (0.0-1.8) 07/28/20 05:25 Lymph # (Auto) 3.0 K/mm3 (1.2-5.4) 07/28/20 05:25 [place] # (Auto) 0.4 K/mm3 (0.0-0.8) 07/28/20 05:25 Eos # (Auto) 0.1 K/mm3 (0.0-0.4) 07/28/20 05:25 Baso # (Auto) 0.0 K/mm3 (0.0-0.1) 07/28/20 05:25 Seg Neutrophils % 47.5 % (40.0-70.0) 07/28/20 05:25 Seg Neutrophils # 3.2 K/mm3 (1.8-7.7) 07/28/20 05:25 Sodium 142 mmol/L (137-145) 07/28/20 05:25 Potassium 4.1 mmol/L (3.6-5.0) 07/28/20 05:25 Chloride 105.0 mmol/L (98-107) 07/28/20 05:25 Carbon Dioxide 28 mmol/L (22-30) 07/28/20 05:25 Anion Gap 13 mmol/L 07/28/20 05:25 BUN 12 mg/dL (7-17) 07/28/20 05:25 Creatinine 0.8 mg/dL (0.6-1.2) 07/28/20 05:25 Estimated GFR > 60 ml/min 07/28/20 05:25 BUN/Creatinine Ratio 15 % 07/28/20 05:25 Glucose 82 mg/dL (65-100) 07/28/20 05:25 Hemoglobin A1c 5.0 % (4-6) 07/27/20 05:14 Calcium 10.0 mg/dL (8.4-10.2) 07/28/20 05:25 Magnesium 2.50 mg/dL (1.7-2.3) H 07/26/20 11:10 Total Bilirubin 0.20 mg/dL (0.1-1.2) 07/28/20 05:25 AST 11 units/L (5-40) 07/28/20 05:25 ALT 12 units/L (7-56) 07/28/20 05:25 Alkaline Phosphatase 82 units/L (35-129) 07/28/20 05:25 Total Creatine Kinase 107 units/L (30-135) 07/26/20 11:10 Troponin T < 0.010 ng/mL (0.00-0.029) 07/26/20 14:19 Total Protein 6.5 g/dL (6.3-8.2) 07/28/20 05:25 Albumin 4.1 g/dL (3.9-5) 07/28/20 05:25 Albumin/Globulin Ratio 1.7 % 07/28/20 05:25 Triglycerides 64 mg/dL (2-149) 07/28/20 05:25 Cholesterol 216 mg/dL (50-199) H 07/28/20 05:25 LDL Cholesterol Direct 155 mg/dL (50-130) H 07/28/20 05:25 HDL Cholesterol 59 mg/dL (40-59) 07/28/20 05:25 Cholesterol/HDL Ratio 3.66 % 07/28/20 05:25 Urine Color Yellow (Yellow) 07/26/20 Unknown Urine Turbidity Clear (Clear) 07/26/20 Unknown Urine pH 7.0 (5.0-7.0) 07/26/20 Unknown Ur Specific [place] 1.013 (1.003-1.030) 07/26/20 Unknown Urine Protein <15 mg/dl mg/dL (Negative) 07/26/20 Unknown Urine Glucose (UA) Neg mg/dL (Negative) 07/26/20 Unknown Urine Ketones Tr mg/dL (Negative) 07/26/20 Unknown Urine Blood Neg (Negative) 07/26/20 Unknown Urine Nitrite Neg (Negative) 07/26/20 Unknown Urine Bilirubin Neg (Negative) 07/26/20 Unknown Urine Urobilinogen < 2.0 mg/dL (<2.0) 07/26/20 Unknown Ur Leukocyte Esterase Sm (Negative) 07/26/20 Unknown Urine WBC (Auto) 1.0 /HPF (0.0-6.0) 07/26/20 Unknown Urine RBC (Auto) < 1.0 /HPF (0.0-6.0) 07/26/20 Unknown Urine Mucus Few /HPF 07/26/20 Unknown Rae/IV: Voiding Method Toilet Active Medications - Current Medications Current Medications: Generic Name Dose Route Start Last Admin Trade Name Freq PRN Reason Stop Dose Admin Acetaminophen 650 mg 07/27/20 00:30 07/27/20 17:33 Acetaminophen 325 Mg Tab PO 650 mg Q4H PRN Administration Pain, Mild (1-3) Aspirin 325 mg 07/27/20 10:00 07/27/20 09:31 Aspirin 325 Mg Tab PO 325 mg QDAY KEYSHAWN Administration Bisacodyl 10 mg 07/27/20 00:30 Bisacodyl 10 Mg Rect Supp [place] QDAY PRN Constipation Ezetimibe 10 mg 07/27/20 11:00 07/27/20 12:53 Ezetimibe 10 Mg Tab PO 10 mg QDAY KEYSHAWN Administration Ergocalciferol 50,000 unit 08/03/20 14:00 Ergocalciferol (Vit D2) 50,000 Unit Cap PO [place] KEYSHAWN Famotidine 20 mg 07/27/20 10:00 07/27/20 21:12 Famotidine 20 Mg Tab PO 20 mg BID KEYSHAWN Administration Heparin Sodium (Porcine) 5,000 unit 07/27/20 00:45 07/27/20 09:33 Heparin 5,000 Unit/1 Ml Vial SUB-Q Not Given Q12HR KEYSHAWN Hydralazine HCl 10 mg 07/27/20 12:03 07/27/20 16:40 Hydralazine 20 Mg/1 Ml Inj IV 10 mg Q4HR PRN Administration SBP>160 or DBP>110 Hydrochlorothiazide 25 mg 07/27/20 11:00 07/27/20 12:53 Hydrochlorothiazide 25 Mg Tab PO 25 mg Q48H KEYSHAWN Administration Sodium Chloride 1,000 mls @ 100 mls/hr 07/27/20 00:30 Nacl 0.9% 1000 Ml IV DIRECT KEYSHAWN Magnesium Hydroxide 30 ml 07/27/20 00:30 Magnesium Hydroxide (Mom) Oral Liqd Udc PO Q4H PRN Constipation Metoclopramide HCl 10 mg 07/27/20 00:24 Metoclopramide 10 Mg/2 Ml Inj IV Q6H PRN Nausea And Vomiting Metoclopramide HCl 10 mg 07/27/20 00:30 Metoclopramide 10 Mg Tab PO Q6H PRN Nausea And Vomiting Morphine Sulfate 2 mg 07/27/20 00:24 Morphine 2 Mg/1 Ml Inj IV Q4H PRN Pain, Moderate (4-6) Ondansetron HCl 4 mg 07/27/20 00:24 Ondansetron 4 Mg/2 Ml Inj IV Q8H PRN Nausea And Vomiting Oxycodone/Acetaminophen 1 tab 07/27/20 00:30 07/27/20 21:12 Oxycodone /Acetaminophen 5-325mg Tab PO 1 tab Q6H PRN Administration Pain, Moderate (4-6) Promethazine HCl 25 mg 07/27/20 00:30 Promethazine 25 Mg Rect Supp [place] Q6H PRN Nausea And Vomiting Scopolamine 1 each 07/27/20 10:00 07/27/20 10:21 Scopolamine Transdermal Patch 72 Hr TD 1 each Q3D KEYSHAWN Administration Sodium Chloride 10 ml 07/27/20 10:00 07/27/20 09:35 Sodium Chloride 0.9% 10 Ml Flush Syringe IV Not Given BID KEYSHAWN Sodium Chloride 10 ml 07/27/20 00:24 Sodium Chloride 0.9% 10 Ml Flush Syringe IV PRN PRN LINE FLUSH Valsartan 160 mg 07/27/20 00:36 07/27/20 09:31 Valsartan 160mg Tab PO 160 mg DAILY KEYSHAWN Administration
[2020-07-28] MEDS: HEPARIN 5,000 UNIT/1 ML VIAL SUB-Q SCH ×3 (09:42→22:19)
--- NOTE | 2020-07-28 11:26 | Magnetic Resonance Report ---
MRI BRAIN WITHOUT CONTRAST INDICATION / CLINICAL INFORMATION: stroke. TECHNIQUE: Multiplanar, multisequence MR images of the brain were obtained. COMPARISON: CT brain 07/26/2020 FINDINGS: BRAIN / INTRACRANIAL CONTENTS: Unenhanced MR images of the brain demonstrate no evidence of acute int racranial abnormality. Ventricles and sulci are normal in size and shape for a patient of this age. There is no evidence of acute ischemic injury, hemorrhage, or mass. Some minimal chronic white matter T2 weighted hyperintensities are noted. There are no abnormal extra-axial fluid collections. The prior CT scan demonstrated a focal expansile 2.1 cm lesion in the left frontal bone. This corresp onds to focal area of mixed signal intensity on the MRI. There is some increased T1 and T2-weighted s ignal along with some increased signal on the diffusion images. The overall appearance continues to b e nonspecific, probably expansile nature must still be considered worrisome for neoplasm. EXTRACRANIAL: As above CRANIOCERVICAL JUNCTION: No significant abnormality. VASCULAR FLOW-VOIDS: No significant abnormality. IMPRESSION: No evidence of acute intracranial abnormality. 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 Signer Name: Luis Felipe Burt MD Signed: 07/28/2020 11:22 AM Workstation Name: [id number]
[2020-07-28] MEDS: EZETIMIBE 10 MG TAB PO SCH (11:43)
[2020-07-28] MEDS: ASPIRIN 325 MG TAB PO SCH (11:43)
[2020-07-28] MEDS: FAMOTIDINE 20 MG TAB PO SCH ×2 (11:43→22:19)
[2020-07-28] MEDS: VALSARTAN 160MG TAB PO SCH (11:43)
--- NOTE | 2020-07-28 12:29 | Vascular Lab Report ---
DUPLEX DOPPLER ULTRASOUND CAROTID, BILATERAL INDICATION / CLINICAL INFORMATION: Stroke. Ataxia, dizziness/vertigo. COMPARISON: None available. FINDINGS: RIGHT CAROTID: No significant abnormality. - PLAQUE ESTIMATE (%): < 50% - CCA velocity: 105 cm/sec. - ICA peak systolic velocity: 113 cm/sec. - ICA/CCA PSV Ratio: Less than 2. Right Vertebral Artery: Antegrade flow. LEFT CAROTID: Small amount of calcified and noncalcified atherosclerotic plaque is present within the bulb, extending into proximal ICA. - PLAQUE ESTIMATE (%): < 50% - CCA velocity: 109 cm/sec. - ICA peak systolic velocity: 113 cm/sec. - ICA/CCA PSV Ratio: Less than 2. Left Vertebral Artery: Antegrade flow. IMPRESSION: 1. Right Internal Carotid Artery: Less than 50% diameter stenosis. 2. Left Internal Carotid Artery: Less than 50% diameter stenosis. Velocity criteria are extrapolated from diameter data as defined by the Society of Radiologists in Ul trasound Consensus Conference, Radiology 2003; 229;340-346. NO STENOSIS (NORMAL) - Plaque = none; ICA PSV < 125 cm/sec; ICA/CCA PSV Ratio < 2.0 <50% STENOSIS - Plaque < 50%; ICA PSV < 125 cm/sec; ICA/CCA PSV Ratio < 2.0 50-69% STENOSIS - Plaque > 50%; ICA PSV = 125-230 cm/sec; ICA/CCA PSV Ratio = 2.0-4.0 >70% BUT <100% STENOSIS - Plaque > 50%; ICA PSV > 230 cm/sec; ICA/CCA PSV Ratio > 4.0 NEAR OCCLUSION - Plaque = visible lumen; ICA PSV = high/low/none; ICA/CCA PSV Ratio = variable TOTAL OCCLUSION - Plaque = no lumen; ICA PSV = none; ICA/CCA PSV Ratio = N/A Scribed by: Luzma Dennis RDMS, RVT Scribed: 07/28/2020 10:34 AM I have reviewed the images, agree with this report, and edited this report as needed. Signer Name: To Gray MD Signed: 07/28/2020 12:25 PM Workstation Name: [id number]
[2020-07-29] MEDS: hydrALAZINE 20 MG/1 ML INJ IV PRN (04:59)
[2020-07-29 08:11] VITALS: BP 157/98
--- NOTE | 2020-07-29 09:02 | Discharge Summary ---
Providers - Providers Date of Admission: 07/26/20 16:40 Date of discharge: 07/29/20 Attending physician: LAYLA DUMONT 07/27/20 00:24 Consult to Physician [CONS] Routine Comment: Consulting Provider: LISBET AMAYA Physician Instructions: Reason For Exam: Ataxia 07/27/20 00:30 Consult to Case Management [CONS] Routine Services Needed at Discharge: Physical Therapy Notified:: porter sample case Consult to Dietitian/Nutrition [CONS] Routine Physician Instructions: Reason For Exam: Reason for Consult: Nutrition Recommendations Reason for Consult: Diet education Occupational Therapy Evaluate and Treat [CONS] Routine Comment: Reason For Exam: Neuro deficits Physical Therapy Evaluation and Treat [CONS] Routine Comment: Reason For Exam: Neuro deficits Primary care physician: [employer] Hospitalization Reason for admission: vertigo Condition: Stable Hospital course: 70-year-old female with a past medical history of hypertension currently living in a personal [facility] comes in for dizziness and unsteady gait of 4 days duration. Patient does not have any weakness but very unsteady while walking ,according to pt. problem get worse when she looks up or move in bed get at time worse with standing up , no previous hx of similar matter , no nausea, no diplopia no swallowing difficulty or weakness Patient blood pressure is also high and was sent by the personal [facility] by EMS. No shortness of breath. Patient is on benazepril. No strokes in the past. Code stroke was called in the emergency room. The patient was initially admitted with diagnosis of CVA. However, CT of the brain and MRI were found to be negative for any acute intracranial abnormality. Echocardiogram revealed left ventricular systolic function normal with LVEF of 55 to 60% and mild concentric left ventricular hypertrophy. Borderline pulmonary hypertension. Carotid ultrasound was negative. Patient has discharge diagnosis of benign positional vertigo. Patient was seen by physical therapy recommended a straight cane for DME. Also, recommendations for ENT and vestibular PT rehab. The patient will be discharged home on meclizine. Dedicated discharge time 35 minutes Disposition: DC-01 TO HOME OR SELFCARE Final Discharge Diagnosis (Prints w/discharge instructions): Benign positional vertigo Core Measure Documentation - Palliative Care Palliative Care/ Comfort Measures: Not Applicable - Core Measures Any of the following diagnoses?: none Exam - Constitutional Vitals: Temp Pulse Resp BP Pulse Ox 97.8 F 111 H 18 157/98 98 07/29/20 08:10 07/29/20 08:10 07/29/20 08:10 07/29/20 08:10 07/29/20 08:10 General appearance: Present: no acute distress, well-nourished - EENT Eyes: Present: PERRL ENT: hearing intact, clear oral mucosa - Neck Neck: Present: supple, normal ROM - Respiratory Respiratory effort: normal Respiratory: bilateral: CTA - Cardiovascular Heart Sounds: Present: S1 & S2. Absent: rub, click - Extremities Extremities: pulses symmetrical, No edema Peripheral Pulses: within normal limits - Abdominal General gastrointestinal: Present: soft, non-tender, non-distended, normal bowel sounds Female genitourinary: Present: normal - Integumentary Integumentary: Present: clear, warm, dry - Musculoskeletal Musculoskeletal: gait normal, strength equal bilaterally - Psychiatric Psychiatric: appropriate mood/affect, intact judgment & insight - Neurologic Neurologic: CNII-XII intact, moves all extremities Plan Activity: advance as tolerated Weight Bearing Status: Weight Bear as Tolerated Diet: regular Durable Medical Equipment Needed Upon Discharge: Cane-Quad Follow up with: PRIMARY CARE,MD [Primary Care Provider] - 3-5 Days Prescriptions: Meclizine [Antivert] 25 mg PO TID PRN #30 tablet PRN Reason: Vertigo Ergocalciferol (Vitamin D2) [Drisdol] 1,250 mcg PO QDAY #30 cap hydroCHLOROthiazide [Hydrochlorothiazide] 25 mg PO Q48H #30 cap Scopolamine [Transderm-Scop] 1 each TD Q3D #3 patch Ezetimibe [Zetia] 10 mg PO QDAY #30
[2020-07-29] MEDS: HEPARIN 5,000 UNIT/1 ML VIAL SUB-Q SCH ×2 (09:13→09:18)
[2020-07-29] MEDS: hydroCHLOROthiazide 25 MG TAB PO SCH ×2 (09:13→10:34)
[2020-07-29] MEDS: EZETIMIBE 10 MG TAB PO SCH (09:13)
[2020-07-29] MEDS: FAMOTIDINE 20 MG TAB PO SCH (09:13)
[2020-07-29] MEDS: VALSARTAN 160MG TAB PO SCH (09:13)
[2020-07-29] MEDS: ASPIRIN 325 MG TAB PO SCH (09:13)
--- NOTE | 2020-07-30 19:02 | Electrocardiograph Report ---
[facility] Test Date: 2020-07-28 Test Time: 07:55:41 Pat Name: SARAN ELLIOTT Department: Room: A467 1 Gender: F Event Marketing Representative: JU : 1950 Requested By: MAUREEN JON Order Number: [id number] Reading MD: Joie Mcqueen Measurements Intervals [place] Rate: 65 P: 26 UT: 151 QRS: -15 QRSD: 87 T: 31 QT: 389 QTc: 404 Interpretive Statements Sinus rhythm Compared to ECG 07/26/2020 10:35:18 No significant changes Electronically Signed On 07-30-2020 19:02:46 EDT by Joie Mcqueen
--- NOTE | 2020-07-31 09:38 | Electrocardiograph Report ---
[facility] Test Date: 2020-07-26 Test Time: 10:35:18 Pat Name: SARAN ELLIOTT Department: ED Room: A467 1 Gender: F Talend Etl Developer: ROMY VELIZ : 1950 Requested By: MAUREEN JON Order Number: [id number] Reading MD: Josiah Denson Measurements Intervals [place] Rate: 61 P: 54 SD: 167 QRS: 14 QRSD: 87 T: 51 QT: 409 QTc: 411 Interpretive Statements Sinus rhythm Probable left atrial enlargement No previous ECG available for comparison Electronically Signed On 07-31-2020 9:38:17 EDT by Josiah Denson
[2020-08-03] MEDS ORDERED: ERGOCALCIFEROL (VIT D2) 50,000 UNIT CAP PO SCH (14:00)
== END 2020-07-29 16:43 | disposition home or self-care (01) ==
LOC: ED 09:20 → INTOOBSV 16:40 → 4A 16:40
PROVIDERS: ADMIT Internal Medicine; ATTEND Hospitalist
DX: I16.1 Hypertensive emergency (principal); R27.0 Ataxia, unspecified; M10.9 Gout, unspecified; R29.818 Other symptoms and signs involving the nervous system; Z79.899 Other long term (current) drug therapy; Z98.890 Other specified postprocedural states; Z79.82 Long term (current) use of aspirin
CPT/HCPCS: 36415; 70450; 70551; 71046; 80053; 80061; 81001; 82550; 83036; 83735; 84484; 85025; 93005; 93306; 93880; 96372; 96374; 96376; 97161; 97165; 99285; G0378; J0360; J1644; 96375